=== PATIENT | female | born 1965 | race Two or more races ===

== ENCOUNTER 2018-05-13 15:23 | Emergency (ER) | payer SELFPAY ==
[~2018-05-13] VITALS: Ht 154.9 cm; Wt 64.7 kg
[2018-05-13 16:22] LABS: BASOPHILS # (AUTO) 0.02 x10^3/uL (0-0.1); BASOPHILS % (AUTO) 0 % (0-1); EOSINOPHILS # (AUTO) 0.02 x10^3/uL (0-0.4); EOSINOPHILS % (AUTO) 0 % (1-7); LYMPHOCYTES # (AUTO) 2.37 x10^3/uL (1-3.4); LYMPHOCYTES % (AUTO) 34 % (22-44); MD NO; MEAN CORPUSCULAR HGB CONC 31.8 g/dL (32.4-35.8); MEAN CORPUSCULAR VOLUME 75.3 fL (80-100); MONOCYTES # (AUTO) 0.47 x10^3/uL (0.2-0.8); MONOCYTES % (AUTO) 7 % (2-9); NEUTROPHILS # (AUTO) 4.13 x10^3/uL (1.8-6.8); NEUTROPHILS % (AUTO) 59 % (42-75); PLATELET COUNT 340 x10^3/uL (130-400); RED BLOOD COUNT 4.97 x10^6/uL (3.82-5.3)
[2018-05-13 16:25] LABS: ALANINE AMINOTRANSFERASE 16 U/L (12-78); ALBUMIN 3.1 g/dL (3.4-5.0); ANION GAP 7 mmol/L (5-15); CALCIUM 8.7 mg/dL (8.5-10.1); CHLORIDE 100 mmol/L (98-107); CREATININE 0.88 mg/dL (0.55-1.02)
[2018-05-13 16:28] LABS: ALKALINE PHOSPHATASE 130 U/L (45-117); BILIRUBIN,TOTAL 0.2 mg/dL (0.2-1.0); TOTAL PROTEIN 7.4 g/dL (6.4-8.2)
[2018-05-13] MEDS ORDERED: MORPHINE SULFATE 4 MG/ML, 1ML IVPush PRN (16:30)
[2018-05-13] MEDS ORDERED: SODIUM CHLORIDE FLUSH 10ML SYR IVF ONE (16:30)
[2018-05-13] MEDS ORDERED: ONDANSETRON ODT 4 MG PO ONE (16:30)
[2018-05-13] MEDS ORDERED: PLEASE ENTER ALLERGIES MC SCH (16:30)
[2018-05-13] MEDS ORDERED: INSU300I SQ (16:35)
[2018-05-13] MEDS ORDERED: NAPR-868 PO (16:35)
[2018-05-13] MEDS ORDERED: EMPA1TAB19 PO (16:35)
[2018-05-13] MEDS ORDERED: VITAMIN D (16:35)
[2018-05-13] MEDS ORDERED: ASPI-496 PO (16:35)
[2018-05-13] MEDS ORDERED: ONDANSETRON ODT 4 MG ONE (16:50)
[2018-05-13] MEDS ORDERED: MORPHINE SULFATE 4 MG/ML, 1ML ONE (16:51)
[2018-05-13] MEDS ORDERED: SODIUM CHLORIDE 0.9% 1,000ML IVBOLUS ONE ×2 (17:00)
[2018-05-13] MEDS ORDERED: INSULIN REGULAR 100 UNITS/ML, 3ML VIAL IVPush ONE (17:00)
[2018-05-13 17:10] LABS: ACETONE, SERUM Negative (Negative)
[2018-05-13] MEDS ORDERED: OMNIPAQUE 350 MG/ML, 100ML BOTTLE ONE (17:51)
[2018-05-13 19:18] LABS: MICROSCOPIC AUTO
[2018-05-13 19:21] VITALS: BP 138/59
[2018-05-13 19:27] LABS: CULTURE INDICATED? NO; HCG UR SG > 1.045 (1.003-1.030)
== END 2018-05-13 20:16 | disposition home or self-care (01) ==
LOC: ED 20:10
DX: R10.31 Right lower quadrant pain (principal); E11.65 Type 2 diabetes mellitus with hyperglycemia
CPT/HCPCS: 36415; 74177; 80053; 81001; 81025; 82010; 82800; 82962; 83690; 85025; 93005; 96361; 96374; 96375; 99285; J7030; Q0162; Q9967